=== PATIENT | male | born 1950 | race African-American/Black ===

== ENCOUNTER 2018-04-29 14:54 | Inpatient (IN) | payer MEDICARE, MEDICAID ==
[~2018-04-29] VITALS: Ht 185.4 cm; Wt 96.6 kg
[2018-04-29] MEDS ORDERED: VANCOMYCIN 1 G PREMIX 200 ML IV ONE (15:30)
[2018-04-29] MEDS ORDERED: PIPERACILLIN/TAZ 3.375G PREMIX 50 ML IV ONE (15:30)
[2018-04-29 16:09] LABS: CHLORIDE 102 mEq/L (98-107); HEMATOCRIT. 27.6 % (42.0-52.0); HEMOGLOBIN. 8.5 g/dL (14.0-18.0); LYMPHOCYTES % 24.1 % (20.0-50.0); MEAN CORPUSCULAR HEMOGLOBIN 21.6 pg (28.0-32.0); MEAN CORPUSCULAR VOLUME 69.9 fL (80.0-94.0); MEAN PLATELET VOLUME 8.6 fl (7.4-10.4); MONOCYTES % 8.9 % (2.0-8.0); PLATELET 194 x1000/uL (130-400); RED BLOOD CELL COUNT 3.95 mill/uL (4.7-6.1); RED CELL DISTRIBUTION WIDTH 20.9 % (11.6-14.6)
[2018-04-29 16:11] LABS: INR 1.3; PARTIAL THROMBOPLASTIN TIME 39.1 sec (23.4-31.0); PROTHROMBIN TIME 13.1 sec (9.1-11.1)
[2018-04-29 16:16] LABS: ETHANOL BLOOD < 10 mg/dL
[2018-04-29 16:19] LABS: CREATINE KINASE 58 IU/L (39-308)
[2018-04-29 16:27] LABS: CREATINE KINASE MB FRACTION 1.3 ng/mL (0.5-3.6)
[2018-04-29 16:30] LABS: PLATELET ESTIMATE NORMAL
[2018-04-29 17:03] LABS: CLARITY URINE CLEAR (CLEAR); COLOR URINE DARK YELLOW (YELLOW); KETONES URINE NEGATIVE (NEGATIVE); LEUKOCYTE ESTERASE URINE NEGATIVE (NEGATIVE); NITRITE URINE NEGATIVE (NEGATIVE); OCCULT BLOOD URINE NEGATIVE (NEGATIVE); PROTEIN URINE TRACE (NEGATIVE)
[2018-04-29] MEDS ORDERED: KCL 10MEQ/50ML PREMIX 50 ML IV ONE (17:15)
[2018-04-29] MEDS ORDERED: POTASSIUM CHLORIDE 20MEQ TABLET SR PO SCH (17:15)
[2018-04-29] MEDS ORDERED: HYDROCODONE/ACETAMINOPHEN 5/325MG TABLET PO PRN (17:30)
[2018-04-29] MEDS ORDERED: LORAZEPAM 2MG/ML CPJ IV PRN (17:30)
[2018-04-29] MEDS ORDERED: ACETAMINOPHEN 325MG TABLET PO PRN (17:30)
[2018-04-29] MEDS ORDERED: IPRATROPIUM/ALBUTEROL 0.5-3(2.5)MG/3ML NEB INH PRN (17:30)
[2018-04-29 17:31] LABS: *AMPHETAMINES SCREEN URINE NEGATIVE (NEGATIVE)
[2018-04-29 17:32] LABS: *BARBITURATES SCREEN URINE NEGATIVE (NEGATIVE); *BENZODIAZEPINES SCREEN URINE NEGATIVE (NEGATIVE); *COCAINE SCREEN URINE NEGATIVE (NEGATIVE); CANNABINOID URINE SCREEN NEGATIVE (NEGATIVE); METHADONE URINE SCREEN NEGATIVE (NEGATIVE); OPIATES URINE SCREEN NEGATIVE (NEGATIVE)
[2018-04-29 17:47] LABS: PHENCYCLIDINE URINE SCREEN NEGATIVE (NEGATIVE)
[2018-04-29] MEDS ORDERED: FUROSEMIDE 20MG/2ML VIAL IVP ONE (21:45)
[2018-04-30] MEDS ORDERED: METF500S7 PO (00:14)
[2018-04-30 00:30] VITALS: BP 113/64
[2018-04-30] MEDS ORDERED: VANCOMYCIN 1 G PREMIX 200 ML IV SCH (02:00)
[2018-04-30 04:00] VITALS: BP 118/65
[2018-04-30 08:00] VITALS: BP 137/72
[2018-04-30] MEDS: FERROUS SULFATE 325MG TABLET PO SCH (08:55)
[2018-04-30] MEDS: FOLIC ACID 1MG TABLET PO SCH (08:55)
[2018-04-30] MEDS: POTASSIUM CHLORIDE 20MEQ TABLET SR PO SCH (08:55)
[2018-04-30] MEDS: ENOXAPARIN 30MG/0.3ML SYR SUBCUT SCH ×2 (08:57→20:49)
[2018-04-30] MEDS: ASPIRIN 81MG EC TABLET PO SCH (08:57)
[2018-04-30 09:06] LABS: BASOPHILS % 0.8 % (0.0-2.0); EOSINOPHILS % 3.2 % (0.0-5.0); HEMATOCRIT. 28.3 % (42.0-52.0); HEMOGLOBIN. 8.7 g/dL (14.0-18.0); LYMPHOCYTES % 21.6 % (20.0-50.0); MEAN CORPUSCULAR HEMOGLOBIN 21.7 pg (28.0-32.0); MEAN CORPUSCULAR VOLUME 70.8 fL (80.0-94.0); MEAN PLATELET VOLUME 8.5 fl (7.4-10.4); MONOCYTES % 7.7 % (2.0-8.0); NEUTROPHILS % 66.7 % (40.0-76.0); PLATELET 186 x1000/uL (130-400); RED BLOOD CELL COUNT 3.99 mill/uL (4.7-6.1); RED CELL DISTRIBUTION WIDTH 20.6 % (11.6-14.6)
[2018-04-30 09:54] LABS: CHLORIDE 102 mEq/L (98-107)
[2018-04-30 12:00] VITALS: BP 106/62
[2018-04-30] MEDS ORDERED: VANCOMYCIN 750 MG PREMIX 150 ML IV SCH (14:00)
[2018-04-30] MEDS: FUROSEMIDE 40MG/4ML VIAL IVP SCH (17:21)
[2018-04-30 17:40] VITALS: BP 121/69
[2018-04-30 20:00] VITALS: BP 118/63
[2018-04-30] MEDS: VANCOMYCIN 750 MG PREMIX 150 ML IV SCH (22:55)
[2018-05-01] VITALS: BP 121/71
[2018-05-01 04:00] VITALS: BP 107/54
[2018-05-01 07:14] LABS: CHLORIDE 102 mEq/L (98-107)
[2018-05-01 07:22] LABS: PHOSPHORUS 3.6 mg/dL (2.5-4.9)
[2018-05-01 07:27] LABS: BASOPHILS % 1.3 % (0.0-2.0); EOSINOPHILS % 3.9 % (0.0-5.0); HEMATOCRIT. 27.6 % (42.0-52.0); HEMOGLOBIN. 8.7 g/dL (14.0-18.0); LYMPHOCYTES % 22.9 % (20.0-50.0); MEAN CORPUSCULAR HEMOGLOBIN 22.1 pg (28.0-32.0); MEAN CORPUSCULAR VOLUME 70.5 fL (80.0-94.0); MEAN PLATELET VOLUME 8.7 fl (7.4-10.4); MONOCYTES % 8.8 % (2.0-8.0); NEUTROPHILS % 63.1 % (40.0-76.0); PLATELET 176 x1000/uL (130-400); RED BLOOD CELL COUNT 3.91 mill/uL (4.7-6.1); RED CELL DISTRIBUTION WIDTH 20.8 % (11.6-14.6)
[2018-05-01 08:00] VITALS: BP 123/71
[2018-05-01] MEDS: FERROUS SULFATE 325MG TABLET PO SCH (08:40)
[2018-05-01] MEDS: FUROSEMIDE 40MG/4ML VIAL IVP SCH (08:40)
[2018-05-01] MEDS: POTASSIUM CHLORIDE 20MEQ TABLET SR PO SCH (08:41)
[2018-05-01] MEDS: ASPIRIN 81MG EC TABLET PO SCH (08:41)
[2018-05-01] MEDS: FOLIC ACID 1MG TABLET PO SCH (08:41)
[2018-05-01] MEDS: VANCOMYCIN 750 MG PREMIX 150 ML IV SCH (08:41)
[2018-05-01] MEDS: ENOXAPARIN 30MG/0.3ML SYR SUBCUT SCH ×2 (08:42→20:16)
[2018-05-01 12:00] VITALS: BP 137/37
[2018-05-01 16:00] VITALS: BP 114/64
[2018-05-01 20:00] VITALS: BP 118/68
[2018-05-02] VITALS: BP 121/72
[2018-05-02] MEDS ORDERED: VANCOMYCIN 1250MG in DEXTROSE 5% WATER 250ML IV SCH ×2
[2018-05-02 04:00] VITALS: BP 116/71
[2018-05-02 08:00] VITALS: BP 130/72
[2018-05-02] MEDS: FERROUS SULFATE 325MG TABLET PO SCH (08:48)
[2018-05-02] MEDS: POTASSIUM CHLORIDE 20MEQ TABLET SR PO SCH (08:48)
[2018-05-02] MEDS: ENOXAPARIN 30MG/0.3ML SYR SUBCUT SCH (08:48)
[2018-05-02] MEDS: FOLIC ACID 1MG TABLET PO SCH (08:48)
[2018-05-02] MEDS: FUROSEMIDE 40MG/4ML VIAL IVP SCH (08:48)
[2018-05-02] MEDS: ASPIRIN 81MG EC TABLET PO SCH (08:48)
[2018-05-02 11:21] VITALS: BP 129/78
[2018-05-02 12:00] VITALS: BP 129/78
== END 2018-05-02 14:40 | disposition home or self-care (01) | DRG 92 ==
LOC: ER 14:54 → 7WST 17:09 → EDBEDREQ 17:15 → ENRESERV 22:45 → 7WST 04-30 00:39
PROVIDERS: ADMIT Internal Medicine Nephrology; ATTEND Internal Medicine Nephrology
DX: G92 Toxic encephalopathy (principal); E44.1 Mild protein-calorie malnutrition; R53.1 Weakness; I50.9 Heart failure, unspecified; F17.200 Nicotine dependence, unspecified, uncomplicated; E11.9 Type 2 diabetes mellitus without complications; M79.89 Other specified soft tissue disorders; D63.8 Anemia in other chronic diseases classified elsewhere; S89.91XA Unspecified injury of right lower leg, initial encounter; M24.572 Contracture, left ankle; Z53.29 Procedure and treatment not carried out because of patient's decision for other reasons; M21.70 Unequal limb length (acquired), unspecified site; M48.02 Spinal stenosis, cervical region; R29.6 Repeated falls; S89.92XA Unspecified injury of left lower leg, initial encounter; X58.XXXA Exposure to other specified factors, initial encounter; Y93.89 Activity, other specified; I25.2 Old myocardial infarction; Y92.89 Other specified places as the place of occurrence of the external cause; Y99.8 Other external cause status
CPT/HCPCS: 36415; 71045; 72148; 73521; 80048; 80202; 80305; 82550; 82553; 83605; 83735; 83880; 84100; 84145; 84484; 86850; 86900; 93005; 93970; 96361; 96365; 96368; 97116; 97162; 97530; 99291; A6261; G0482; J1650; J1940; J2543; J3370; J3480; J7050; J7060

== ENCOUNTER 2019-04-22 19:36 | Inpatient (IN) | payer MEDICARE, MEDICAID ==
[~2019-04-22] VITALS: Ht 210.8 cm; Wt 90.7 kg
[~2019-04-22 19:36] MED LIST: METF500S7 PO
[2019-04-22] MEDS ORDERED: MORPHINE SULFATE 4 MG/ML CPJ (NOT FOR IM USE) IV ONE (20:45)
[2019-04-22 21:43] LABS: BASOPHILS % 1.3 % (0.0-2.0); EOSINOPHILS % 0.9 % (0.0-5.0); HEMATOCRIT. 30.5 % (42.0-52.0); HEMOGLOBIN. 9.5 g/dL (14.0-18.0); LYMPHOCYTES % 16.4 % (20.0-50.0); MEAN CORPUSCULAR VOLUME 70.6 fL (80.0-94.0); MEAN PLATELET VOLUME 8.8 fl (7.4-10.4); MONOCYTES % 7.8 % (2.0-8.0); NEUTROPHILS % 73.6 % (40.0-76.0); PLATELET 111 x1000/uL (130-400); RED BLOOD CELL COUNT 4.32 mill/uL (4.7-6.1); RED CELL DISTRIBUTION WIDTH 30.9 % (11.6-14.6)
[2019-04-22 21:50] LABS: CHLORIDE 98 mEq/L (98-107)
[2019-04-22 22:08] LABS: PLATELET ESTIMATE DECREASED
[2019-04-22] MEDS ORDERED: LEVOFLOXACIN 750MG PREMIX 150 ML IV ONE (23:00)
[2019-04-22] MEDS ORDERED: PIPERACILLIN/TAZ 3.375G PREMIX 50 ML IV ONE (23:00)
[2019-04-23] MEDS ORDERED: DOCUSATE SODIUM 100MG CAPSULE PO PRN (01:00)
[2019-04-23] MEDS ORDERED: ONDANSETRON HCL 4MG/2ML INJ IV PRN (01:00)
[2019-04-23] MEDS ORDERED: HYDROCODONE/ACETAMINOPHEN 5/325MG TABLET PO PRN (01:00)
[2019-04-23] MEDS ORDERED: CLONIDINE 0.1MG TABLET PO PRN (01:00)
[2019-04-23] MEDS ORDERED: ACETAMINOPHEN 325MG TABLET PO PRN (01:00)
[2019-04-23 01:05] VITALS: BP 96/56
[2019-04-23] MEDS ORDERED: COR6 PO (03:34)
[2019-04-23] MEDS ORDERED: ASPI-1497 PO (03:34)
[2019-04-23] MEDS ORDERED: BUME2TAB34 PO (03:34)
[2019-04-23] MEDS ORDERED: RIVA20TA PO (03:34)
[2019-04-23] MEDS ORDERED: OMEP40CA12 PO (03:34)
[2019-04-23 04:00] VITALS: BP 112/59
[2019-04-23 07:02] LABS: CREATINE KINASE 42 IU/L (39-308)
[2019-04-23 07:03] LABS: CREATINE KINASE 49 IU/L (39-308); CREATINE KINASE MB FRACTION 1.7 ng/mL (0.5-3.6)
[2019-04-23 07:04] LABS: CREATINE KINASE MB FRACTION 1.9 ng/mL (0.5-3.6)
[2019-04-23 08:00] VITALS: BP 92/55
[2019-04-23] MEDS: ENOXAPARIN 40MG/0.4ML SYR SUBCUT SCH (09:00)
[2019-04-23] MEDS: AMLODIPINE 10MG TABLET PO SCH (09:00)
[2019-04-23] MEDS ORDERED: FUROSEMIDE 40MG/4ML VIAL IV SCH (09:00)
[2019-04-23] MEDS: ASPIRIN 81MG EC TABLET PO SCH (09:57)
[2019-04-23] MEDS ORDERED: POTASSIUM CHLORIDE 20MEQ TABLET SR PO NR (10:00)
[2019-04-23 12:00] VITALS: BP 99/56
[2019-04-23 12:01] LABS: CHLORIDE 98 mEq/L (98-107)
[2019-04-23 12:25] LABS: FOLIC ACID (FOLATE) SERUM >20 ng/mL ng/mL (>5.38)
[2019-04-23 12:35] LABS: VITAMIN B12 SERUM 634 pg/mL (211-911)
[2019-04-23] MEDS ORDERED: IPRATROPIUM/ALBUTEROL 0.5-3(2.5)MG/3ML NEB HHN PRN (13:30)
[2019-04-23] MEDS: SPIRONOLACTONE 25MG TABLET PO SCH (13:58)
[2019-04-23] MEDS: BUMETANIDE 1MG/4ML VIAL IV SCH (17:09)
[2019-04-23] MEDS: CEFTRIAXONE 1 G PREMIX 50 ML IV SCH (17:10)
[2019-04-23 20:00] VITALS: BP 96/65
[2019-04-23] MEDS: IPRATROPIUM/ALBUTEROL 0.5-3(2.5)MG/3ML NEB HHN SCH (20:28)
[2019-04-23] MEDS: BUDESONIDE 0.5MG/2ML NEB HHN SCH (20:29)
[2019-04-24] VITALS (7 sets, daily range): BP systolic 98–123; BP diastolic 54–65
[2019-04-24] MEDS: IPRATROPIUM/ALBUTEROL 0.5-3(2.5)MG/3ML NEB HHN SCH ×4 (01:33→21:20)
[2019-04-24 07:23] LABS: BASOPHILS % 0.5 % (0.0-2.0); EOSINOPHILS % 0.9 % (0.0-5.0); HEMATOCRIT. 26.2 % (42.0-52.0); HEMOGLOBIN. 8.3 g/dL (14.0-18.0); LYMPHOCYTES % 22.8 % (20.0-50.0); MEAN CORPUSCULAR HEMOGLOBIN 22.8 pg (28.0-32.0); MEAN CORPUSCULAR VOLUME 71.8 fL (80.0-94.0); MEAN PLATELET VOLUME 8.5 fl (7.4-10.4); MONOCYTES % 10.3 % (2.0-8.0); NEUTROPHILS % 65.5 % (40.0-76.0); PLATELET 76 x1000/uL (130-400); RED BLOOD CELL COUNT 3.64 mill/uL (4.7-6.1); RED CELL DISTRIBUTION WIDTH 31.4 % (11.6-14.6)
[2019-04-24 08:31] LABS: CHLORIDE 99 mEq/L (98-107)
[2019-04-24 08:39] LABS: LDL CHOLESTEROL 37 mg/dL (5-100)
[2019-04-24 08:40] LABS: HDL CHOLESTEROL 31 mg/dL (40-59)
[2019-04-24] MEDS: BUDESONIDE 0.5MG/2ML NEB HHN SCH ×2 (08:52→21:18)
[2019-04-24] MEDS: ENOXAPARIN 40MG/0.4ML SYR SUBCUT SCH (09:00)
[2019-04-24] MEDS: ASPIRIN 81MG EC TABLET PO SCH (09:00)
[2019-04-24] MEDS: AMLODIPINE 10MG TABLET PO SCH (09:00)
[2019-04-24] MEDS: SPIRONOLACTONE 25MG TABLET PO SCH (10:37)
[2019-04-24] MEDS: BUMETANIDE 1MG/4ML VIAL IV SCH (10:37)
[2019-04-24] MEDS: CEFTRIAXONE 1 G PREMIX 50 ML IV SCH (14:00)
[2019-04-25] VITALS: BP 110/65
[2019-04-25] MEDS: IPRATROPIUM/ALBUTEROL 0.5-3(2.5)MG/3ML NEB HHN SCH ×4 (01:43→21:24)
[2019-04-25 04:00] VITALS: BP 113/59
[2019-04-25 06:43] LABS: HEMATOCRIT. 25.4 % (42.0-52.0); MEAN CORPUSCULAR HEMOGLOBIN 22.4 pg (28.0-32.0); MEAN CORPUSCULAR VOLUME 71.2 fL (80.0-94.0); MEAN PLATELET VOLUME 8.7 fl (7.4-10.4); PLATELET 76 x1000/uL (130-400); RED BLOOD CELL COUNT 3.57 mill/uL (4.7-6.1); RED CELL DISTRIBUTION WIDTH 31.2 % (11.6-14.6)
[2019-04-25] MEDS: BUDESONIDE 0.5MG/2ML NEB HHN SCH ×2 (07:35→21:24)
[2019-04-25 08:00] VITALS: BP 106/52
[2019-04-25 08:11] LABS: CHLORIDE 99 mEq/L (98-107)
[2019-04-25] MEDS: AMLODIPINE 10MG TABLET PO SCH (09:00)
[2019-04-25] MEDS: BUMETANIDE 1MG/4ML VIAL IV SCH (09:45)
[2019-04-25] MEDS: ASPIRIN 81MG EC TABLET PO SCH (09:46)
[2019-04-25] MEDS: SPIRONOLACTONE 25MG TABLET PO SCH (09:47)
[2019-04-25 12:31] VITALS: BP 113/62
[2019-04-25] MEDS: CEFTRIAXONE 1 G PREMIX 50 ML IV SCH (14:09)
[2019-04-25 16:19] VITALS: BP 98/53
[2019-04-25 17:06] LABS: PLATELET ESTIMATE DECREASED
[2019-04-25] MEDS: PANTOPRAZOLE SODIUM 40 MG/VIAL IV SCH (19:15)
[2019-04-25 20:00] VITALS: BP 96/46
[2019-04-26] VITALS: BP 104/53
[2019-04-26] MEDS: IPRATROPIUM/ALBUTEROL 0.5-3(2.5)MG/3ML NEB HHN SCH ×5 (02:27→20:03)
[2019-04-26 04:00] VITALS: BP 111/62
[2019-04-26 08:00] VITALS: BP 103/51
[2019-04-26] MEDS: BUDESONIDE 0.5MG/2ML NEB HHN SCH (08:22)
[2019-04-26] MEDS: BUMETANIDE 1MG/4ML VIAL IV SCH (08:39)
[2019-04-26] MEDS: PANTOPRAZOLE SODIUM 40 MG/VIAL IV SCH (08:39)
[2019-04-26] MEDS: ASPIRIN 81MG EC TABLET PO SCH (08:39)
[2019-04-26] MEDS: AMLODIPINE 10MG TABLET PO SCH (08:46)
[2019-04-26] MEDS: SPIRONOLACTONE 25MG TABLET PO SCH (08:48)
[2019-04-26 12:00] VITALS: BP 113/54
[2019-04-26] MEDS ORDERED: NEOMY SULF/BACITRAC ZN/POLY OINT 28GM TOP SCH (13:00)
[2019-04-26 14:09] VITALS: BP 115/61
[2019-04-26 16:00] VITALS: BP 119/60
[2019-04-26] MEDS: CEFTRIAXONE 1 G PREMIX 50 ML IV SCH (16:54)
[2019-04-26] MEDS ORDERED: FAMOTIDINE 20MG/2ML VIAL IV SCH (21:00)
== END 2019-04-26 20:27 | disposition home health service (06) | DRG 291 ==
LOC: ER 19:36 → 7WST 22:57 → ENRESERV 23:24
PROVIDERS: ADMIT Hospitalist; ATTEND Hospitalist
DX: I11.0 Hypertensive heart disease with heart failure (principal); J96.00 Acute respiratory failure, unspecified whether with hypoxia or hypercapnia; J18.9 Pneumonia, unspecified organism; N17.9 Acute kidney failure, unspecified; B19.10 Unspecified viral hepatitis B without hepatic coma; E44.1 Mild protein-calorie malnutrition; D61.818 Other pancytopenia; L97.919 Non-pressure chronic ulcer of unspecified part of right lower leg with unspecified severity; L97.929 Non-pressure chronic ulcer of unspecified part of left lower leg with unspecified severity; I50.33 Acute on chronic diastolic (congestive) heart failure; I42.9 Cardiomyopathy, unspecified; D63.8 Anemia in other chronic diseases classified elsewhere; I27.20 Pulmonary hypertension, unspecified; I25.10 Atherosclerotic heart disease of native coronary artery without angina pectoris; K74.60 Unspecified cirrhosis of liver; S91.301A Unspecified open wound, right foot, initial encounter; S91.302A Unspecified open wound, left foot, initial encounter; W06.XXXA Fall from bed, initial encounter; E11.51 Type 2 diabetes mellitus with diabetic peripheral angiopathy without gangrene; F17.210 Nicotine dependence, cigarettes, uncomplicated; I34.0 Nonrheumatic mitral (valve) insufficiency; S91.115A Laceration without foreign body of left lesser toe(s) without damage to nail, initial encounter; D69.59 Other secondary thrombocytopenia; I87.2 Venous insufficiency (chronic) (peripheral); M21.70 Unequal limb length (acquired), unspecified site; R62.7 Adult failure to thrive; M25.851 Other specified joint disorders, right hip; Z86.718 Personal history of other venous thrombosis and embolism; Z85.828 Personal history of other malignant neoplasm of skin; I25.2 Old myocardial infarction; Z87.81 Personal history of (healed) traumatic fracture; Z71.6 Tobacco abuse counseling; Z68.20 Body mass index [BMI] 20.0-20.9, adult; Y93.89 Activity, other specified; Y92.89 Other specified places as the place of occurrence of the external cause; Y99.8 Other external cause status; I83.009 Varicose veins of unspecified lower extremity with ulcer of unspecified site; J44.9 Chronic obstructive pulmonary disease, unspecified
CPT/HCPCS: 36415; 71045; 72170; 80048; 80053; 80061; 82550; 82553; 82607; 82746; 82962; 83880; 84484; 85025; 93005; 93970; 94640; 96365; 96367; 96375; 97162; 97166; 97530; 99285; C9113; J0696; J1940; J1956; J2270; J2543; J3490; J7040; J7620; J7626

== ENCOUNTER 2019-05-06 13:59 | Inpatient (IN) | payer MEDICARE, MEDICAID ==
[~2019-05-06] VITALS: Ht 185.4 cm; Wt 92.1 kg
[~2019-05-06 13:59] MED LIST changes: +ASPI-1497 PO; +BUME2TAB34 PO; +COR6 PO; -METF500S7 PO; +OMEP40CA12 PO; +RIVA20TA PO
[2019-05-06] MEDS ORDERED: VANCOMYCIN 1 G PREMIX 200 ML IV ONE (15:45)
[2019-05-06] MEDS ORDERED: SODIUM CHLORIDE 0.9% 1000ML BAG (SEPSIS BOLUS) IV ONE (15:45)
[2019-05-06] MEDS ORDERED: PIPERACILLIN/TAZ 3.375G PREMIX 50 ML IV ONE (15:45)
[2019-05-06 16:02] LABS: BG BASE EXCESS -3.6 mmol/L (-2.0-2.0); BG CARBOXYHEMOGLOBIN 1.5 % (0.5-1.5); BG DEOXYHEMOGLOBIN 0.4 % (0.0-5.0); BG FRACTION INSPIRED OXYGEN 60; BG HCO3 ACT 20.4 mmol/L (22.0-26.0); BG METHEMOGLOBIN 0.3 % (0.0-1.5); BG OXYGEN SATURATION 99.6 % (92.0-98.5); BG OXYHEMOGLOBIN 97.8 % (94.0-97.0); BG PCO2 32.4 mmHg (35.0-45.0); BG PH 7.416 (7.350-7.450); BG PO2 267.7 mmHg (75.0-100.0); BG SAMPLE SITE RIGHT BRACHIAL; BG TOTAL HEMOGLOBIN 9.5 g/dL (12.0-18.0); BG VENT MODE MASK - SIMPLE
[2019-05-06 16:05] LABS: INR 1.2; PROTHROMBIN TIME 12.2 sec (9.6-11.0)
[2019-05-06 16:07] LABS: BASOPHILS % 0.8 % (0.0-2.0); EOSINOPHILS % 1.7 % (0.0-5.0); HEMATOCRIT. 30.4 % (42.0-52.0); HEMOGLOBIN. 9.4 g/dL (14.0-18.0); LYMPHOCYTES % 14.5 % (20.0-50.0); MEAN CORPUSCULAR VOLUME 74.6 fL (80.0-94.0); MEAN PLATELET VOLUME 8.6 fl (7.4-10.4); MONOCYTES % 8.8 % (2.0-8.0); NEUTROPHILS % 74.2 % (40.0-76.0); PLATELET 154 x1000/uL (130-400); RED BLOOD CELL COUNT 4.07 mill/uL (4.7-6.1); RED CELL DISTRIBUTION WIDTH 31.1 % (11.6-14.6)
[2019-05-06 16:09] LABS: CHLORIDE 106 mEq/L (98-107)
[2019-05-06 16:13] LABS: ETHANOL BLOOD < 10 mg/dL
[2019-05-06 16:17] LABS: CREATINE KINASE 35 IU/L (39-308)
[2019-05-06 16:20] LABS: CREATINE KINASE MB FRACTION 2.8 ng/mL (0.5-3.6)
[2019-05-06 16:23] LABS: PLATELET ESTIMATE NORMAL
[2019-05-06 17:06] LABS: CLARITY URINE CLEAR (CLEAR); COLOR URINE DARK YELLOW (YELLOW); KETONES URINE NEGATIVE (NEGATIVE); LEUKOCYTE ESTERASE URINE NEGATIVE (NEGATIVE); NITRITE URINE NEGATIVE (NEGATIVE); OCCULT BLOOD URINE NEGATIVE (NEGATIVE); PROTEIN URINE 2+ (NEGATIVE); SPECIFIC GRAVITY URINE 1.024 (1.005-1.030)
[2019-05-06 17:28] LABS: *AMPHETAMINES SCREEN URINE NEGATIVE (NEGATIVE); *BARBITURATES SCREEN URINE NEGATIVE (NEGATIVE); *BENZODIAZEPINES SCREEN URINE NEGATIVE (NEGATIVE); CANNABINOID URINE SCREEN NEGATIVE (NEGATIVE); METHADONE URINE SCREEN NEGATIVE (NEGATIVE); OPIATES URINE SCREEN NEGATIVE (NEGATIVE); PHENCYCLIDINE URINE SCREEN NEGATIVE (NEGATIVE)
[2019-05-06 17:29] LABS: *COCAINE SCREEN URINE NEGATIVE (NEGATIVE)
[2019-05-06 22:00] VITALS: BP 112/60
[2019-05-06] MEDS ORDERED: CLOP75TA33 MT (22:29)
[2019-05-06] MEDS ORDERED: CEFTRIAXONE 1 G PREMIX 50 ML IV SCH (23:00)
[2019-05-06] MEDS ORDERED: ONDANSETRON HCL 4MG/2ML INJ IV PRN (23:00)
[2019-05-06] MEDS ORDERED: ACETAMINOPHEN 325MG TABLET PO PRN (23:00)
[2019-05-06] MEDS ORDERED: DOCUSATE SODIUM 100MG CAPSULE PO PRN (23:00)
[2019-05-06] MEDS ORDERED: NA PHOS,M-B/NA PHOS,DI-BA ENEMA 118ML PR PRN (23:00)
[2019-05-06] MEDS ORDERED: CLONIDINE 0.1MG TABLET PO PRN (23:00)
[2019-05-06 23:28] VITALS: BP 112/60
[2019-05-07] VITALS: BP 108/59
[2019-05-07] MEDS: VANCOMYCIN 1250MG in DEXTROSE 5% WATER 250ML IV SCH ×2 (01:38→20:34)
[2019-05-07] MEDS: CEFTRIAXONE 1 G PREMIX 50 ML IV SCH (01:38)
[2019-05-07] MEDS: SODIUM CHLORIDE 0.9% 1,000 ML IV SCH (01:39)
[2019-05-07 04:00] VITALS: BP 110/58
[2019-05-07 07:01] LABS: HEMATOCRIT. 25.4 % (42.0-52.0); HEMOGLOBIN. 8.1 g/dL (14.0-18.0); MEAN CORPUSCULAR HEMOGLOBIN 23.4 pg (28.0-32.0); MEAN CORPUSCULAR VOLUME 73.1 fL (80.0-94.0); MEAN PLATELET VOLUME 8.5 fl (7.4-10.4); PLATELET 135 x1000/uL (130-400); RED BLOOD CELL COUNT 3.47 mill/uL (4.7-6.1); RED CELL DISTRIBUTION WIDTH 30.6 % (11.6-14.6)
[2019-05-07 07:16] LABS: CHLORIDE 109 mEq/L (98-107)
[2019-05-07] MEDS ORDERED: ENOXAPARIN 40MG/0.4ML SYR SUBCUT SCH (09:00)
[2019-05-07] MEDS: FOLIC ACID 1MG TABLET PO SCH (10:45)
[2019-05-07] MEDS: MULTIVITAMINS,THER W-MINERALS TABLET PO SCH (10:45)
[2019-05-07] MEDS: THIAMINE HCL 100MG TABLET PO SCH (10:46)
[2019-05-07] MEDS: OMEPRAZOLE 20MG CAPSULE EXTENDED RELEASE PO SCH (13:10)
[2019-05-07] MEDS: CARVEDILOL 6.25 MG TABLET PO SCH ×2 (13:11→20:34)
[2019-05-07] MEDS: BUMETANIDE 1MG TABLET PO SCH ×2 (13:23→17:26)
[2019-05-07 16:00] VITALS: BP 101/61
[2019-05-07] MEDS: RIVAROXABAN 20 MG TABLET PO SCH (17:26)
[2019-05-07 20:00] VITALS: BP 109/74
[2019-05-08] VITALS: BP 120/69
[2019-05-08] MEDS: CEFTRIAXONE 1 G PREMIX 50 ML IV SCH (00:29)
[2019-05-08] MEDS: SODIUM CHLORIDE 0.9% 1,000 ML IV SCH ×2 (00:29→18:09)
[2019-05-08 04:00] VITALS: BP 113/59
[2019-05-08 05:36] LABS: PLATELET ESTIMATE NORMAL
[2019-05-08] MEDS: OMEPRAZOLE 20MG CAPSULE EXTENDED RELEASE PO SCH (06:00)
[2019-05-08 08:00] VITALS: BP 115/57
[2019-05-08] MEDS: THIAMINE HCL 100MG TABLET PO SCH (09:16)
[2019-05-08] MEDS: CARVEDILOL 6.25 MG TABLET PO SCH (09:16)
[2019-05-08] MEDS: BUMETANIDE 1MG TABLET PO SCH ×3 (09:17→18:09)
[2019-05-08] MEDS: MULTIVITAMINS,THER W-MINERALS TABLET PO SCH (09:17)
[2019-05-08] MEDS: FOLIC ACID 1MG TABLET PO SCH (09:17)
[2019-05-08] MEDS ORDERED: POTASSIUM CHLORIDE 20MEQ TABLET SR PO NR (10:45)
[2019-05-08 11:38] LABS: CHLORIDE 106 mEq/L (98-107)
[2019-05-08 12:00] VITALS: BP_SYST 114; BP_SYST 151; BP_DIAS 66; BP_DIAS 94
[2019-05-08] MEDS: VANCOMYCIN 1 G PREMIX 200 ML IV SCH (13:28)
[2019-05-08 16:00] VITALS: BP 101/58
[2019-05-08] MEDS: RIVAROXABAN 20 MG TABLET PO SCH (18:09)
[2019-05-08 20:00] VITALS: BP 120/63
[2019-05-08] MEDS: FAMOTIDINE 20MG TABLET PO SCH (20:47)
[2019-05-09] VITALS: BP 97/70
[2019-05-09] MEDS: CEFTRIAXONE 1 G PREMIX 50 ML IV SCH (00:33)
[2019-05-09 04:00] VITALS: BP 106/54
[2019-05-09] MEDS: VANCOMYCIN 1 G PREMIX 200 ML IV SCH (05:48)
[2019-05-09 06:01] LABS: CHLORIDE 104 mEq/L (98-107)
[2019-05-09 06:03] LABS: HEMATOCRIT. 24.8 % (42.0-52.0); HEMOGLOBIN. 7.9 g/dL (14.0-18.0); MEAN CORPUSCULAR HEMOGLOBIN 23.5 pg (28.0-32.0); MEAN CORPUSCULAR VOLUME 73.7 fL (80.0-94.0); MEAN PLATELET VOLUME 8.6 fl (7.4-10.4); PLATELET 121 x1000/uL (130-400); RED BLOOD CELL COUNT 3.37 mill/uL (4.7-6.1); RED CELL DISTRIBUTION WIDTH 30.7 % (11.6-14.6)
[2019-05-09 08:00] VITALS: BP 121/61
[2019-05-09] MEDS: BUMETANIDE 1MG TABLET PO SCH ×3 (08:23→16:33)
[2019-05-09] MEDS: MULTIVITAMINS,THER W-MINERALS TABLET PO SCH (08:23)
[2019-05-09] MEDS: FAMOTIDINE 20MG TABLET PO SCH ×2 (08:23→20:06)
[2019-05-09] MEDS: THIAMINE HCL 100MG TABLET PO SCH (08:23)
[2019-05-09] MEDS: FOLIC ACID 1MG TABLET PO SCH (08:23)
[2019-05-09] MEDS: SODIUM CHLORIDE 0.9% 1,000 ML IV SCH (08:26)
[2019-05-09 12:00] VITALS: BP 117/60
[2019-05-09 13:49] LABS: PLATELET ESTIMATE SLIGHTLY DECREASED
[2019-05-09 16:00] VITALS: BP 95/61
[2019-05-09] MEDS: RIVAROXABAN 20 MG TABLET PO SCH (16:33)
[2019-05-09 20:00] VITALS: BP 118/63
[2019-05-10] VITALS: BP 108/54
[2019-05-10] MEDS: CEFTRIAXONE 1 G PREMIX 50 ML IV SCH (01:13)
[2019-05-10] MEDS: SODIUM CHLORIDE 0.9% 1,000 ML IV SCH ×2 (01:13→17:32)
[2019-05-10] MEDS: VANCOMYCIN 1 G PREMIX 200 ML IV SCH ×2 (01:56→17:32)
[2019-05-10 04:00] VITALS: BP 108/60
[2019-05-10 08:00] VITALS: BP 116/53
[2019-05-10] MEDS: BUMETANIDE 1MG TABLET PO SCH ×3 (08:53→17:00)
[2019-05-10] MEDS: FAMOTIDINE 20MG TABLET PO SCH ×2 (08:53→21:34)
[2019-05-10] MEDS: THIAMINE HCL 100MG TABLET PO SCH (08:53)
[2019-05-10] MEDS: MULTIVITAMINS,THER W-MINERALS TABLET PO SCH (08:53)
[2019-05-10] MEDS: FOLIC ACID 1MG TABLET PO SCH (08:53)
[2019-05-10 12:00] VITALS: BP 111/60
[2019-05-10] MEDS: MAGNESIUM OXIDE 400MG TABLET PO SCH (12:38)
[2019-05-10] MEDS: POTASSIUM CHLORIDE 20MEQ TABLET SR PO SCH (12:39)
[2019-05-10 16:11] VITALS: BP 115/60
[2019-05-10] MEDS: RIVAROXABAN 20 MG TABLET PO SCH (17:28)
[2019-05-10] MEDS: GUAIFENESIN 200MG/10ML SUGAR FREE UDC PO PRN (17:32)
[2019-05-10 17:44] LABS: BASOPHILS % 1.1 % (0.0-2.0); EOSINOPHILS % 4.7 % (0.0-5.0); LYMPHOCYTES % 23.7 % (20.0-50.0); MEAN CORPUSCULAR HEMOGLOBIN 22.3 pg (28.0-32.0); MEAN CORPUSCULAR VOLUME 72.1 fL (80.0-94.0); MEAN PLATELET VOLUME 8.4 fl (7.4-10.4); MONOCYTES % 8.9 % (2.0-8.0); NEUTROPHILS % 61.6 % (40.0-76.0); PLATELET 136 x1000/uL (130-400); RED BLOOD CELL COUNT 4.03 mill/uL (4.7-6.1)
[2019-05-10 17:47] LABS: CHLORIDE 99 mEq/L (98-107)
[2019-05-10 18:34] LABS: PLATELET ESTIMATE NORMAL
[2019-05-10 20:00] VITALS: BP 106/52
[2019-05-11] VITALS: BP 124/63
[2019-05-11] MEDS: CEFTRIAXONE 1 G PREMIX 50 ML IV SCH (01:59)
[2019-05-11] MEDS: GUAIFENESIN 200MG/10ML SUGAR FREE UDC PO PRN ×3 (03:47→19:01)
[2019-05-11 04:00] VITALS: BP 130/69
[2019-05-11 08:00] VITALS: BP 115/56
[2019-05-11] MEDS: THIAMINE HCL 100MG TABLET PO SCH (09:13)
[2019-05-11] MEDS: MULTIVITAMINS,THER W-MINERALS TABLET PO SCH (09:13)
[2019-05-11] MEDS: BUMETANIDE 1MG TABLET PO SCH ×3 (09:13→17:33)
[2019-05-11] MEDS: FAMOTIDINE 20MG TABLET PO SCH ×2 (09:13→20:17)
[2019-05-11] MEDS: MAGNESIUM OXIDE 400MG TABLET PO SCH (09:13)
[2019-05-11] MEDS: FOLIC ACID 1MG TABLET PO SCH (09:13)
[2019-05-11] MEDS: SODIUM CHLORIDE 0.9% 1,000 ML IV SCH (09:14)
[2019-05-11] MEDS: POTASSIUM CHLORIDE 20MEQ TABLET SR PO SCH (09:14)
[2019-05-11 12:00] VITALS: BP 116/54
[2019-05-11] MEDS ORDERED: POTASSIUM CHLORIDE 20MEQ TABLET SR PO SCH (13:00)
[2019-05-11 16:00] VITALS: BP 125/64
[2019-05-11] MEDS: RIVAROXABAN 20 MG TABLET PO SCH (17:33)
[2019-05-11 20:00] VITALS: BP 127/61
[2019-05-11] MEDS ORDERED: VANCOMYCIN 1 G PREMIX 200 ML IV SCH (21:00)
[2019-05-12] VITALS: BP 108/59
[2019-05-12] MEDS: GUAIFENESIN 200MG/10ML SUGAR FREE UDC PO PRN ×2 (01:09→15:38)
[2019-05-12] MEDS: CEFTRIAXONE 1 G PREMIX 50 ML IV SCH (01:09)
[2019-05-12 04:00] VITALS: BP 109/59
[2019-05-12] MEDS: SODIUM CHLORIDE 0.9% 1,000 ML IV SCH (05:32)
[2019-05-12 08:00] VITALS: BP 108/57
[2019-05-12 08:26] LABS: BASOPHILS % 0.9 % (0.0-2.0); EOSINOPHILS % 4.7 % (0.0-5.0); HEMATOCRIT. 26.8 % (42.0-52.0); HEMOGLOBIN. 8.3 g/dL (14.0-18.0); LYMPHOCYTES % 30.7 % (20.0-50.0); MEAN CORPUSCULAR HEMOGLOBIN 22.5 pg (28.0-32.0); MEAN CORPUSCULAR VOLUME 72.3 fL (80.0-94.0); MEAN PLATELET VOLUME 8.5 fl (7.4-10.4); MONOCYTES % 10.8 % (2.0-8.0); NEUTROPHILS % 52.9 % (40.0-76.0); PLATELET 120 x1000/uL (130-400); RED CELL DISTRIBUTION WIDTH 31.5 % (11.6-14.6)
[2019-05-12 08:46] LABS: CHLORIDE 99 mEq/L (98-107)
[2019-05-12] MEDS: FOLIC ACID 1MG TABLET PO SCH (09:22)
[2019-05-12] MEDS: THIAMINE HCL 100MG TABLET PO SCH (09:22)
[2019-05-12] MEDS: MAGNESIUM OXIDE 400MG TABLET PO SCH (09:22)
[2019-05-12] MEDS: POTASSIUM CHLORIDE 20MEQ TABLET SR PO SCH (09:22)
[2019-05-12] MEDS: FAMOTIDINE 20MG TABLET PO SCH (09:22)
[2019-05-12] MEDS: BUMETANIDE 1MG TABLET PO SCH ×3 (09:23→18:17)
[2019-05-12] MEDS: MULTIVITAMINS,THER W-MINERALS TABLET PO SCH (09:23)
[2019-05-12 12:00] VITALS: BP 148/64
[2019-05-12 16:00] VITALS: BP 124/65
[2019-05-12] MEDS: RIVAROXABAN 20 MG TABLET PO SCH (18:16)
[2019-05-12 18:29] VITALS: BP 124/65
== END 2019-05-12 19:35 | DRG 70 ==
LOC: ER 13:59 → 5WST 19:34 → EDBEDREQ 19:44 → EDBEDREQTM 19:44 → EDBEDREQSVC 19:44 → ENRESERV 20:47 → UNDODISIN 05-12 16:45
PROVIDERS: ADMIT Hospitalist; ATTEND Hospitalist
DX: G93.41 Metabolic encephalopathy (principal); E43 Unspecified severe protein-calorie malnutrition; D61.818 Other pancytopenia; I42.9 Cardiomyopathy, unspecified; B19.10 Unspecified viral hepatitis B without hepatic coma; L03.90 Cellulitis, unspecified; E11.51 Type 2 diabetes mellitus with diabetic peripheral angiopathy without gangrene; I87.2 Venous insufficiency (chronic) (peripheral); R62.7 Adult failure to thrive; I27.20 Pulmonary hypertension, unspecified; S91.115A Laceration without foreign body of left lesser toe(s) without damage to nail, initial encounter; I11.0 Hypertensive heart disease with heart failure; I25.10 Atherosclerotic heart disease of native coronary artery without angina pectoris; I25.2 Old myocardial infarction; I44.1 Atrioventricular block, second degree; I50.9 Heart failure, unspecified; J44.9 Chronic obstructive pulmonary disease, unspecified; K74.60 Unspecified cirrhosis of liver; M21.70 Unequal limb length (acquired), unspecified site; X10.1XXA Contact with hot food, initial encounter; M24.571 Contracture, right ankle; C76.51 Malignant neoplasm of right lower limb; T23.222A Burn of second degree of single left finger (nail) except thumb, initial encounter; E83.42 Hypomagnesemia; E87.6 Hypokalemia; I34.0 Nonrheumatic mitral (valve) insufficiency; S91.111A Laceration without foreign body of right great toe without damage to nail, initial encounter; X58.XXXA Exposure to other specified factors, initial encounter; Y92.89 Other specified places as the place of occurrence of the external cause; Y93.89 Activity, other specified; Y99.8 Other external cause status; Z87.891 Personal history of nicotine dependence; Z68.26 Body mass index [BMI] 26.0-26.9, adult; Z86.718 Personal history of other venous thrombosis and embolism; Z82.49 Family history of ischemic heart disease and other diseases of the circulatory system; Z91.19 Patient's noncompliance with other medical treatment and regimen; Z91.81 History of falling; Z95.5 Presence of coronary angioplasty implant and graft
CPT/HCPCS: 36415; 36600; 71045; 80048; 80053; 80202; 80305; 80320; 81003; 82375; 82550; 82553; 82805; 83605; 83735; 84145; 84443; 84484; 85025; 87804; 93005; 93306; 93970; 96365; 97110; 97161; 97530; 99285; J0696; J1650; J2543; J3370; J7030; J7060; G0480

== ENCOUNTER 2019-07-31 19:31 | Inpatient (IN) | payer MEDICARE, MEDICAID ==
[~2019-07-31] VITALS: Ht 182.9 cm; Wt 69.9 kg
[~2019-07-31 19:31] MED LIST changes: -ASPI-1497 PO; +CLOP75TA33 MT
[2019-07-31 21:20] LABS: BASOPHILS % 0.6 % (0.0-2.0); EOSINOPHILS % 3.9 % (0.0-5.0); HEMATOCRIT. 37.4 % (42.0-52.0); HEMOGLOBIN. 12.4 g/dL (14.0-18.0); LYMPHOCYTES % 36.4 % (20.0-50.0); MEAN CORPUSCULAR HEMOGLOBIN 25.2 pg (28.0-32.0); MEAN CORPUSCULAR VOLUME 75.9 fL (80.0-94.0); MEAN PLATELET VOLUME 8.8 fl (7.4-10.4); MONOCYTES % 10.2 % (2.0-8.0); NEUTROPHILS % 48.9 % (40.0-76.0); PLATELET 66 x1000/uL (130-400); RED BLOOD CELL COUNT 4.92 mill/uL (4.7-6.1); RED CELL DISTRIBUTION WIDTH 21.1 % (11.6-14.6)
[2019-07-31 21:26] LABS: CHLORIDE 106 mEq/L (98-107)
[2019-07-31 21:27] LABS: INR 1.3
[2019-07-31 21:54] LABS: CLARITY URINE CLEAR (CLEAR); COLOR URINE DARK YELLOW (YELLOW); KETONES URINE NEGATIVE (NEGATIVE); LEUKOCYTE ESTERASE URINE 1+ (NEGATIVE); NITRITE URINE POSITIVE (NEGATIVE); OCCULT BLOOD URINE NEGATIVE (NEGATIVE); PROTEIN URINE 1+ (NEGATIVE); SPECIFIC GRAVITY URINE 1.022 (1.005-1.030)
[2019-07-31] MEDS ORDERED: HYDROMORPHONE HCL/PF 2MG/ML CPJ IV PRN (22:00)
[2019-07-31] MEDS ORDERED: MAGNESIUM/ALUMINUM HYDROXIDE/SIMETHICONE 30ML UDC PO PRN (22:00)
[2019-07-31] MEDS ORDERED: ONDANSETRON HCL 4MG/2ML INJ IV PRN (22:00)
[2019-07-31] MEDS ORDERED: HYDROCODONE/ACETAMINOPHEN 5/325MG TABLET PO PRN (22:00)
[2019-07-31] MEDS ORDERED: DOCUSATE SODIUM 100MG CAPSULE PO PRN (22:00)
[2019-07-31] MEDS ORDERED: ACETAMINOPHEN 325MG TABLET PO PRN (22:00)
[2019-07-31] MEDS ORDERED: ENOXAPARIN 40MG/0.4ML SYR SUBCUT SCH (22:00)
[2019-07-31] MEDS ORDERED: CLONIDINE 0.1MG TABLET PO PRN (22:00)
[2019-07-31] MEDS ORDERED: GUAIFENESIN 200MG/10ML SUGAR FREE UDC PO PRN (22:00)
[2019-07-31] MEDS ORDERED: KCL 10MEQ/50ML PREMIX 50 ML IV NR (23:00)
[2019-08-01] MEDS ORDERED: CEFTRIAXONE 2 G PREMIX 50 ML IV SCH (00:45)
[2019-08-01 04:16] LABS: BASOPHILS % 1.2 % (0.0-2.0); EOSINOPHILS % 4.6 % (0.0-5.0); HEMATOCRIT. 34.4 % (42.0-52.0); HEMOGLOBIN. 11.4 g/dL (14.0-18.0); LYMPHOCYTES % 30.3 % (20.0-50.0); MEAN CORPUSCULAR HEMOGLOBIN 25.4 pg (28.0-32.0); MEAN CORPUSCULAR VOLUME 76.5 fL (80.0-94.0); MEAN PLATELET VOLUME 8.5 fl (7.4-10.4); MONOCYTES % 12.1 % (2.0-8.0); NEUTROPHILS % 51.8 % (40.0-76.0); PLATELET 59 x1000/uL (130-400)
[2019-08-01 04:24] LABS: CHLORIDE 109 mEq/L (98-107)
[2019-08-01] MEDS ORDERED: POTASSIUM CHLORIDE 20MEQ TABLET SR PO SCH (08:15)
[2019-08-01] MEDS ORDERED: METOPROLOL TARTRATE 25MG TABLET PO SCH (09:00)
[2019-08-01 12:00] VITALS: BP 104/59
[2019-08-01 13:02] VITALS: BP 104/59
[2019-08-01] MEDS: OMEPRAZOLE 20MG CAPSULE EXTENDED RELEASE PO SCH (14:21)
[2019-08-01 16:00] VITALS: BP 104/58
[2019-08-01] MEDS ORDERED: RIVAROXABAN 20 MG TABLET PO SCH (17:00)
[2019-08-01] MEDS: BUMETANIDE 1MG TABLET PO SCH (17:35)
[2019-08-01 20:00] VITALS: BP 116/65
[2019-08-01] MEDS: CARVEDILOL 6.25 MG TABLET PO SCH (21:40)
[2019-08-02] VITALS: BP 102/57
[2019-08-02 04:00] VITALS: BP 99/54
[2019-08-02] MEDS: OMEPRAZOLE 20MG CAPSULE EXTENDED RELEASE PO SCH (06:42)
[2019-08-02 08:00] VITALS: BP 98/62
[2019-08-02] MEDS: BUMETANIDE 1MG TABLET PO SCH ×3 (08:40→16:34)
[2019-08-02] MEDS: CARVEDILOL 6.25 MG TABLET PO SCH ×2 (08:40→21:00)
[2019-08-02 12:00] VITALS: BP 102/59
[2019-08-02] MEDS: POTASSIUM CHLORIDE 20MEQ TABLET SR PO SCH (12:28)
[2019-08-02 16:00] VITALS: BP 117/70
[2019-08-02 20:00] VITALS: BP 104/61
[2019-08-03] VITALS: BP 103/58
[2019-08-03 04:00] VITALS: BP 96/56
[2019-08-03 06:51] LABS: HEMATOCRIT. 35.4 % (42.0-52.0); HEMOGLOBIN. 11.7 g/dL (14.0-18.0); MEAN CORPUSCULAR HEMOGLOBIN 25.2 pg (28.0-32.0); MEAN CORPUSCULAR VOLUME 76.8 fL (80.0-94.0); MEAN PLATELET VOLUME 8.8 fl (7.4-10.4); PLATELET 62 x1000/uL (130-400); RED BLOOD CELL COUNT 4.62 mill/uL (4.7-6.1); RED CELL DISTRIBUTION WIDTH 22.4 % (11.6-14.6)
[2019-08-03] MEDS: OMEPRAZOLE 20MG CAPSULE EXTENDED RELEASE PO SCH (06:58)
[2019-08-03 07:04] LABS: CHLORIDE 101 mEq/L (98-107)
[2019-08-03 08:00] VITALS: BP 123/70
[2019-08-03] MEDS: BUMETANIDE 1MG TABLET PO SCH ×3 (08:53→16:21)
[2019-08-03] MEDS: POTASSIUM CHLORIDE 20MEQ TABLET SR PO SCH (08:53)
[2019-08-03] MEDS: CARVEDILOL 6.25 MG TABLET PO SCH ×2 (08:53→20:38)
[2019-08-03] MEDS ORDERED: MAGNESIUM 2 G PREMIX 50 ML IV SCH (11:00)
[2019-08-03 11:17] LABS: PLATELET ESTIMATE DECREASED
[2019-08-03 12:00] VITALS: BP 116/55
[2019-08-03 16:00] VITALS: BP 109/61
[2019-08-03 20:00] VITALS: BP 107/68
[2019-08-04] VITALS: BP 99/57
[2019-08-04 04:00] VITALS: BP 98/59
[2019-08-04 07:56] LABS: CHLORIDE 99 mEq/L (98-107)
[2019-08-04 08:00] VITALS: BP 78/46
[2019-08-04] MEDS: CARVEDILOL 6.25 MG TABLET PO SCH ×2 (09:00→21:00)
[2019-08-04] MEDS: POTASSIUM CHLORIDE 20MEQ TABLET SR PO SCH (09:25)
[2019-08-04] MEDS: OMEPRAZOLE 20MG CAPSULE EXTENDED RELEASE PO SCH (09:25)
[2019-08-04] MEDS: BUMETANIDE 1MG TABLET PO SCH ×3 (09:25→16:08)
[2019-08-04 12:00] VITALS: BP 115/55
[2019-08-04 16:00] VITALS: BP 106/57
[2019-08-04 20:00] VITALS: BP 98/55
[2019-08-05] VITALS: BP 90/43
[2019-08-05 04:00] VITALS: BP 91/48
[2019-08-05] MEDS: OMEPRAZOLE 20MG CAPSULE EXTENDED RELEASE PO SCH (06:34)
[2019-08-05 08:00] VITALS: BP 99/54
[2019-08-05] MEDS: CARVEDILOL 6.25 MG TABLET PO SCH ×2 (08:48→20:38)
[2019-08-05] MEDS: BUMETANIDE 1MG TABLET PO SCH ×3 (08:49→17:07)
[2019-08-05] MEDS: POTASSIUM CHLORIDE 20MEQ TABLET SR PO SCH (08:49)
[2019-08-05 12:00] VITALS: BP 116/54
[2019-08-05 16:00] VITALS: BP 110/54
[2019-08-05 20:00] VITALS: BP 108/57
[2019-08-06] VITALS: BP 91/48
[2019-08-06 04:00] VITALS: BP 99/55
[2019-08-06] MEDS: OMEPRAZOLE 20MG CAPSULE EXTENDED RELEASE PO SCH ×2 (06:25→06:28)
[2019-08-06 08:00] VITALS: BP 109/47
[2019-08-06] MEDS: BUMETANIDE 1MG TABLET PO SCH ×3 (09:30→17:20)
[2019-08-06] MEDS: POTASSIUM CHLORIDE 20MEQ TABLET SR PO SCH (09:30)
[2019-08-06] MEDS: CARVEDILOL 6.25 MG TABLET PO SCH ×2 (09:31→20:59)
[2019-08-06 16:00] VITALS: BP 108/59
[2019-08-06 20:00] VITALS: BP 97/50
[2019-08-07 04:00] VITALS: BP 119/67
[2019-08-07] MEDS: OMEPRAZOLE 20MG CAPSULE EXTENDED RELEASE PO SCH (06:36)
[2019-08-07 08:00] VITALS: BP 91/53
[2019-08-07] MEDS: BUMETANIDE 1MG TABLET PO SCH ×3 (09:00→17:00)
[2019-08-07] MEDS: CARVEDILOL 6.25 MG TABLET PO SCH ×2 (09:00→21:00)
[2019-08-07] MEDS: POTASSIUM CHLORIDE 20MEQ TABLET SR PO SCH (10:02)
[2019-08-07 12:00] VITALS: BP 111/76
[2019-08-07 16:00] VITALS: BP 98/45
[2019-08-07 20:00] VITALS: BP 104/52
[2019-08-08] VITALS: BP 97/49
[2019-08-08 04:00] VITALS: BP 108/51
[2019-08-08] MEDS: OMEPRAZOLE 20MG CAPSULE EXTENDED RELEASE PO SCH (06:17)
[2019-08-08 08:00] VITALS: BP 113/47
[2019-08-08] MEDS: CARVEDILOL 6.25 MG TABLET PO SCH ×2 (09:00→21:00)
[2019-08-08] MEDS: POTASSIUM CHLORIDE 20MEQ TABLET SR PO SCH (09:37)
[2019-08-08] MEDS: BUMETANIDE 1MG TABLET PO SCH ×3 (09:37→17:41)
[2019-08-08 12:00] VITALS: BP 118/58
[2019-08-08 16:00] VITALS: BP 111/55
[2019-08-08 20:00] VITALS: BP 103/52
[2019-08-09] VITALS: BP 106/49
[2019-08-09 04:00] VITALS: BP 107/55
[2019-08-09] MEDS: OMEPRAZOLE 20MG CAPSULE EXTENDED RELEASE PO SCH (06:44)
[2019-08-09 08:00] VITALS: BP 106/55
[2019-08-09] MEDS: BUMETANIDE 1MG TABLET PO SCH ×3 (10:00→21:00)
[2019-08-09] MEDS: CARVEDILOL 6.25 MG TABLET PO SCH ×2 (10:00→21:10)
[2019-08-09] MEDS: POTASSIUM CHLORIDE 20MEQ TABLET SR PO SCH (10:12)
[2019-08-09 12:00] VITALS: BP 119/60
[2019-08-09 16:00] VITALS: BP 102/51
[2019-08-09 18:15] LABS: BASOPHILS % 0.7 % (0.0-2.0); EOSINOPHILS % 2.4 % (0.0-5.0); HEMATOCRIT. 32.3 % (42.0-52.0); HEMOGLOBIN. 10.6 g/dL (14.0-18.0); LYMPHOCYTES % 26.6 % (20.0-50.0); MEAN CORPUSCULAR HEMOGLOBIN 25.5 pg (28.0-32.0); MEAN CORPUSCULAR VOLUME 77.5 fL (80.0-94.0); MEAN PLATELET VOLUME 8.8 fl (7.4-10.4); MONOCYTES % 12.8 % (2.0-8.0); NEUTROPHILS % 57.5 % (40.0-76.0); PLATELET 69 x1000/uL (130-400); RED BLOOD CELL COUNT 4.17 mill/uL (4.7-6.1); RED CELL DISTRIBUTION WIDTH 22.8 % (11.6-14.6)
[2019-08-09 18:23] LABS: CHLORIDE 98 mEq/L (98-107)
[2019-08-09 19:18] LABS: PLATELET ESTIMATE DECREASED
[2019-08-09 20:00] VITALS: BP 112/64
[2019-08-10] VITALS: BP 126/55
[2019-08-10 04:00] VITALS: BP 106/55
[2019-08-10] MEDS: OMEPRAZOLE 20MG CAPSULE EXTENDED RELEASE PO SCH (06:28)
[2019-08-10] MEDS: CARVEDILOL 6.25 MG TABLET PO SCH (09:00)
[2019-08-10] MEDS: POTASSIUM CHLORIDE 20MEQ TABLET SR PO SCH (09:42)
[2019-08-10] MEDS: BUMETANIDE 1MG TABLET PO SCH ×2 (09:49→13:49)
[2019-08-10] MEDS ORDERED: MAGNESIUM OXIDE 400MG TABLET PO SCH (10:00)
[2019-08-10 16:45] VITALS: BP 106/56
== END 2019-08-10 19:08 | DRG 641 ==
LOC: ER 19:31 → EDBEDREQ 22:16 → EDBEDREQTM 22:16 → EDBEDREQSVC 22:16 → ENRESERV 08-01 10:17 → 6EST 08-01 10:50
PROVIDERS: ADMIT Hospitalist; ATTEND Hospitalist
DX: R62.7 Adult failure to thrive (principal); B19.10 Unspecified viral hepatitis B without hepatic coma; E46 Unspecified protein-calorie malnutrition; I42.9 Cardiomyopathy, unspecified; D61.818 Other pancytopenia; E78.00 Pure hypercholesterolemia, unspecified; E87.6 Hypokalemia; I25.10 Atherosclerotic heart disease of native coronary artery without angina pectoris; I27.21 Secondary pulmonary arterial hypertension; R53.1 Weakness; M24.572 Contracture, left ankle; C44.702 Unspecified malignant neoplasm of skin of right lower limb, including hip; E11.51 Type 2 diabetes mellitus with diabetic peripheral angiopathy without gangrene; K21.9 Gastro-esophageal reflux disease without esophagitis; I50.9 Heart failure, unspecified; J44.9 Chronic obstructive pulmonary disease, unspecified; K74.60 Unspecified cirrhosis of liver; L85.3 Xerosis cutis; I87.2 Venous insufficiency (chronic) (peripheral); M21.70 Unequal limb length (acquired), unspecified site; Z91.81 History of falling; I25.2 Old myocardial infarction; Z86.718 Personal history of other venous thrombosis and embolism; Z91.19 Patient's noncompliance with other medical treatment and regimen; Z68.20 Body mass index [BMI] 20.0-20.9, adult; Z82.49 Family history of ischemic heart disease and other diseases of the circulatory system; Z87.891 Personal history of nicotine dependence; Z03.818 Encounter for observation for suspected exposure to other biological agents ruled out
CPT/HCPCS: 36415; 71045; 80053; 81003; 83605; 83735; 83880; 84145; 84484; 85025; 87635; 93005; 93970; 97110; 97116; 97162; 97530; 99285; J3475; J3480; U0003-CS